=== PATIENT | male | born 1965 | race Caucasian/White ===

== ENCOUNTER 2017-04-30 08:17 | Day surgery (SDC) | payer OTHER ==
[~2017-04-30] VITALS: Ht 167.6 cm; Wt 115.6 kg
[2017-04-30 08:55] VITALS: Ht 167.6 cm; Wt 115.6 kg
[2017-04-30 09:13] VITALS: BP 139/80; PULSE 70; RESP 18
[2017-04-30] MEDS ORDERED: PROPOFOL 40 ML ONE (09:32)
[2017-04-30] MEDS ORDERED: LIDOCAINE 2% (SDV) 5 ML INJ ONE ×2 (09:32→10:26)
[2017-04-30 10:25] VITALS: BP 132/72; RESP 20
[2017-04-30] MEDS ORDERED: PROPOFOL 20 ML ONE (10:26)
--- NOTE | 2017-05-07 11:58 | GILP ---
DATE OF PROCEDURE: 04/30/2017 PROCEDURES: 1. Colonoscopy and hot biopsy of the polyp from the ascending colon. 2. Diverticulosis. PREOP DIAGNOSIS: Rule out colon polyps. POSTOP DIAGNOSES: 1. Polyp noted in the proximal ascending colon. This was removed with hot biopsy forceps. 2. Diverticulosis. 3. Hemorrhoids. DESCRIPTION OF PROCEDURE: After informed written consent was obtained, the patient was asked to lay on the left lateral side. Intravenous anesthesia was given by Anesthesia. When the patient became somnolent, Olympus video colonoscope was introduced into the rectum. The scope was advanced all the way to the cecum. A 4-mm flat polyp was noted in the proximal ascending colon. This polyp was removed with the help of hot biopsy forceps. Diverticula was noted all along the colon but no bleeding noted. Scope at this time was withdrawn. On the way out, minimal external hemorrhoids were noted, and the procedure was terminated. PLAN: Recommend high-fiber diet and wait for the pathology report. Dictated By: Juan Jose Patterson MD /mya/ana /Document#: [id number]
== END 2017-04-30 12:48 | disposition home or self-care (01) ==
LOC: GIL 08:17
PROVIDERS: ATTEND Internal Medicine Gastroenterology
DX: Z12.11 Encounter for screening for malignant neoplasm of colon (principal)
CPT/HCPCS: 45380; 88305; Z7610